=== PATIENT | male | born 1980 | race Two or more races ===

== ENCOUNTER 2019-02-28 22:55 | Inpatient (IN) | payer MEDICAID, OTHER ==
[~2019-02-28] VITALS: Ht 170.2 cm; Wt 79.5 kg
[~2019-02-28 22:55] MED LIST: CYCL-1 PO
[2019-02-28 23:26] LABS: BASOPHILS # (AUTO) 0.1 X10'3 (0-0.2); BASOPHILS % (AUTO) 0.4 % (0-1); EOSINOPHILS # (AUTO) 0.2 X10'3 (0-0.9); EOSINOPHILS % (AUTO) 1.2 % (0-6); HEMOGLOBIN 13.2 g/dl (14.0-17.9); LYMPHOCYTES # (AUTO) 1.1 X10'3 (1.1-4.8); LYMPHOCYTES % (AUTO) 6.8 % (21-51); MEAN CORPUSCULAR HEMOGLOBIN 29.4 PG (27.0-31.0); MEAN CORPUSCULAR HGB CONC 33.7 g/dL (33.0-36.5); MEAN CORPUSCULAR VOLUME 87.2 FL (78-98); MEAN PLATELET VOLUME 9.5 FL (7.4-10.4); MONOCYTES # (AUTO) 2.1 X10'3 (0-0.9); NEUTROPHILS # (AUTO) 12.8 X10'3 (1.8-7.7); NEUTROPHILS % (AUTO) 78.6 % (42-75); PLATELET COUNT 208 X10'3 (140-440); RED BLOOD COUNT 4.48 X10'6 (4.70-6.10); RED CELL DISTRIBUTION WIDTH 13.7 % (11.5-14.5); WHITE BLOOD COUNT 16.3 X10'3 (4.5-11.0)
[2019-02-28 23:41] LABS: ALANINE AMINOTRANSFERASE 93 U/L (12-78); ALBUMIN 3.2 G/DL (3.4-5.0); ALBUMIN/GLOBULIN RATIO 0.7 (1.1-1.5); ALKALINE PHOSPHATASE 152 IU/L (46-116); ANION GAP 9 (8-16); ASPARTATE AMINO TRANSFERASE 82 U/L (10-37); BILIRUBIN,TOTAL 0.7 MG/DL (0.1-1.0); BLOOD UREA NITROGEN 14 MG/DL (7-18); BUN/CREATININE RATIO 13.6 (5.4-32.0); CALCIUM 9.6 MG/DL (8.5-10.1); CHLORIDE 99 MMOL/L (99-107); CREATININE 1.03 MG/DL (0.60-1.10); GLUCOSE 114 MG/DL (70-104); POTASSIUM 3.2 MMOL/L (3.5-5.1); SODIUM 136 MMOL/L (135-145); TOTAL CARBON DIOXIDE 27.8 MMOL/L (24-32); eGFR 81 ML/MIN
[2019-02-28 23:44] LABS: PARTIAL THROMBOPLASTIN TIME 38 SECONDS (22-32)
[2019-02-28 23:52] LABS: CLARITY,URINE CLEAR (Clear); COLOR,URINE AMBER (Yellow); GLUCOSE, URINE NEGATIVE (Neg); KETONES,URINE TRACE mg/dl (Neg); LEUKOCYTE ESTERASE ,URINE NEGATIVE (Neg); NITRITES, URINE NEGATIVE (Neg); OCCULT BLOOD,URINE TRACE-INTACT (Neg); PROTEIN,URINE 100 mg/dl (Neg)
[2019-02-28 23:58] LABS: UA COLLECTION TYPE CLN CATCH MIDSTREAM
[2019-03-01] LABS: BACTERIA,URINE NONE SEEN /HPF (Neg); MUCUS STRANDS FEW /LPF (Neg); RBC,URINE 0-2 /HPF (0-2); SQUAMOUS EPITHELIAL CELL,UR NONE SEEN /LPF (FEW); TRANSITIONAL EPI CELLS,URINE FEW /HPF; WBC,URINE 0-4 /HPF (0-4)
--- NOTE | 2019-03-01 00:57 | NUR ---
DR. MENDEZ AT BEDSIDE PERFORMING US OF GRO[facility] AREA.
[2019-03-01] MEDS ORDERED: normal saline 1000ML IV soln IVB ONE (01:10)
[2019-03-01] MEDS ORDERED: CefTRIAXone 2gm/D5W 50ml 50 ML IV ONE (01:10)
[2019-03-01] MEDS: morphine 4 MG/ML inj SYRINge IV PRN ×3 (01:25→07:53)
--- NOTE | 2019-03-01 06:28 | NUR ---
ULTRASOUND IN THE ROOM
--- NOTE | 2019-03-01 06:49 | NUR ---
ULTRASOUND IS DONE WITH THE PROCEDURE
[2019-03-01] MEDS ORDERED: CLIN300C3 PO (07:43)
[2019-03-01] MEDS ORDERED: HYDR-3965 PO (07:43)
[2019-03-01] MEDS ORDERED: ondansetron/PF 4mg/2ml inj IV PRN (08:00)
[2019-03-01] MEDS ORDERED: magnesium hydroxide 30ml (MOM) UD suspension PO PRN (08:00)
[2019-03-01] MEDS ORDERED: azithromycin/NS 500mg/250ml 250 ML IV ONE ×2 (08:00)
[2019-03-01] MEDS ORDERED: mag hydrox/Alum hydrox/simeth 30ml oral suspension PO PRN (08:00)
[2019-03-01] MEDS ORDERED: acetaminophen 325mg tablet PO PRN (08:00)
[2019-03-01] MEDS: normal saline 1000ml 1,000 ML IV SCH ×3 (08:00→22:59)
[2019-03-01] MEDS ORDERED: CefTRIAXone/D5W-Rocephin 1gm 50 ML IV SCH (08:00)
--- NOTE | 2019-03-01 09:19 | NUR ---
Patient states smokes "a lot" of marijuana, occasional tobacco use, no alcholol. Patient states "sober for 9 months". 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 Addendum: 03/01/19 at 0947 by Debra Ford RN Amended: Links added.
[2019-03-01 09:50] VITALS: BP 120/68
[2019-03-01] MEDS: HYDROmorphone inj. 0.5 MG/0.5 ML DISP.SYRIN IV PRN ×4 (10:22→22:50)
[2019-03-01 11:00] VITALS: BP 129/71
[2019-03-01] MEDS ORDERED: iohexol 300mg/ml 100ml inj. ONE (11:00)
[2019-03-01] MEDS ORDERED: potassium Cl 20 mEq SR tablet PO STA (11:16)
[2019-03-01] MEDS: lactose-reduced food (Ensure Enlive) - 237ml bottle PO SCH ×2 (13:00→18:47)
--- NOTE | 2019-03-01 15:37 | NUR ---
Malnutrition consult received. Patient admitted with left testicular abscess, left epididymitis, possible sepsis, hypokalemia per MD note. Receiving potassium replacement d/t low potassium. Ate about 50% of one meal. Patient was not available at bedside for RD visit, will try tomorrow. Addendum: 03/01/19 at [address] Amended: Links added.
[2019-03-01] MEDS: piperacillin/tazo 3.375gm/50ml 50 ML IV SCH (16:37)
--- NOTE | 2019-03-01 18:45 | NUR ---
Patient in room [facility]. I have received report from Triny KAPLAN and had the opportunity to ask questions and assume patient care. Dinner sitting at bedside, states that he is in too much pain to eat. Provided Dilaudid and zofran to encourage eating. Will continue to monitor.
[2019-03-01 20:00] VITALS: BP 119/74
[2019-03-02] VITALS: BP 128/80
[2019-03-02] MEDS: piperacillin/tazo 3.375gm/50ml 50 ML IV SCH ×4 (00:49→23:45)
[2019-03-02] MEDS: HYDROmorphone inj. 0.5 MG/0.5 ML DISP.SYRIN IV PRN ×2 (04:19→09:19)
[2019-03-02 05:29] LABS: BASOPHILS # (AUTO) 0.1 X10'3 (0-0.2); BASOPHILS % (AUTO) 0.7 % (0-1); EOSINOPHILS # (AUTO) 0.2 X10'3 (0-0.9); EOSINOPHILS % (AUTO) 1.9 % (0-6); HEMATOCRIT 35.9 % (42.0-52.0); HEMOGLOBIN 12.3 g/dl (14.0-17.9); LYMPHOCYTES # (AUTO) 1.7 X10'3 (1.1-4.8); LYMPHOCYTES % (AUTO) 16.6 % (21-51); MEAN CORPUSCULAR HEMOGLOBIN 29.7 PG (27.0-31.0); MEAN CORPUSCULAR HGB CONC 34.3 g/dL (33.0-36.5); MEAN CORPUSCULAR VOLUME 86.5 FL (78-98); MEAN PLATELET VOLUME 9.6 FL (7.4-10.4); MONOCYTES # (AUTO) 1.6 X10'3 (0-0.9); MONOCYTES % (AUTO) 15.4 % (2-12); NEUTROPHILS # (AUTO) 6.6 X10'3 (1.8-7.7); NEUTROPHILS % (AUTO) 65.4 % (42-75); PLATELET COUNT 246 X10'3 (140-440); RED BLOOD COUNT 4.15 X10'6 (4.70-6.10); RED CELL DISTRIBUTION WIDTH 13.8 % (11.5-14.5); WHITE BLOOD COUNT 10.2 X10'3 (4.5-11.0)
[2019-03-02 05:50] LABS: ALBUMIN 2.7 G/DL (3.4-5.0); ANION GAP 11 (8-16); BLOOD UREA NITROGEN 9 MG/DL (7-18); BUN/CREATININE RATIO 10.3 (5.4-32.0); CALCIUM 9.2 MG/DL (8.5-10.1); CHLORIDE 103 MMOL/L (99-107); CREATININE 0.87 MG/DL (0.60-1.10); GLUCOSE 94 MG/DL (70-104); POTASSIUM 3.7 MMOL/L (3.5-5.1); SODIUM 139 MMOL/L (135-145); TOTAL CARBON DIOXIDE 25.2 MMOL/L (24-32); eGFR > 90 ML/MIN
[2019-03-02 06:30] VITALS: BP 120/79
--- NOTE | 2019-03-02 06:30 | NUR ---
Patient in room [facility]. I have received report from EUSEBIO Rocha & EUSEBIO Mccormack and had the opportunity to ask questions and assume patient care.
--- NOTE | 2019-03-02 06:53 | NUR ---
Problems reprioritized. Patient report given, questions answered & plan of care reviewed with Philly RN. Resting, requested abd, provided, will continue to monitor.
[2019-03-02] MEDS: lactose-reduced food (Ensure Enlive) - 237ml bottle PO SCH ×3 (06:58→18:40)
[2019-03-02] MEDS: HYDROcodone/acetaminophen 5mg/325mg tablet PO PRN ×4 (09:31→21:50)
[2019-03-02] MEDS: normal saline 1000ml 1,000 ML IV SCH ×2 (09:37→21:25)
[2019-03-02 11:15] VITALS: BP 136/73
--- NOTE | 2019-03-02 12:49 | NUR ---
BEHAVIORAL HEALTH CONSULTATION [employer] requested consultation as patient was requesting to restart psychiatric medications that had been discontinued. Patient reports he was in [facility] halfway in September 2018 and left with a 30 day supply of Zyprexa 20 mg QHS. He did not receive any follow-up mental health care and subsequently stopped the medication. Reports he has been sleeping poorly and has thoughts that people "are against him". He states, "Like when I feel like my son is in cahoots with my ". Denies any SI or history of self-harm or suicide attempts. Reports he lives with his and children. Occasionally "couch surfs" during times of conflict with the . Reports he is not hearing voices at this time, but is hearing "whispers" at times. No acute agitation and patient is cooperative with interview. No need for acute psychiatric inpatient treatment. Spoke with Dr. Mcfadden regarding reccomendation to re-start Zyprexa at 5 mg QHS. Patient will be provided follow-up resources for [facility] Mental Health by Behavioral Health Consultation team or [employer].
[2019-03-02] MEDS: linezolid 600mg tablet PO SCH ×2 (13:18→21:10)
[2019-03-02] MEDS: HYDROmorphone 1 mg/ml syringe IV PRN ×3 (13:19→21:23)
--- NOTE | 2019-03-02 15:49 | NUR ---
F/u: Pt reports wt loss r/t low appetite past week but does not know prior wt/wt hx. Pt started on zyvox today; RD provided written/verbal zyvox ed w/ RD contact information. Pt has no visible signs of malnutrition and does not qualify at this time. Addendum: 03/02/19 at [address] Amended: Links added.
--- NOTE | 2019-03-02 18:00 | NUR ---
Problems reprioritized. Patient report given, questions answered & plan of care reviewed with EUSEBIO Florez & EUSEBIO Lord.
--- NOTE | 2019-03-02 18:21 | NUR ---
Patient in room [facility]. I have received report from Philly KAPLAN and had the opportunity to ask questions and assume patient care with Vikki Lord RN.
--- NOTE | 2019-03-02 18:30 | NUR ---
Received report from Philly KAPLAN pt is awake and alert on RA, eating dinner, in no apparent distress, call light and items of freq use within reach.
[2019-03-02 19:00] VITALS: BP 127/73
[2019-03-02] MEDS: OLANZapine 2.5MG tablet PO SCH (21:10)
[2019-03-03] VITALS: BP 131/74
[2019-03-03] MEDS: HYDROmorphone 1 mg/ml syringe IV PRN ×4 (01:30→16:57)
[2019-03-03] MEDS: HYDROcodone/acetaminophen 5mg/325mg tablet PO PRN ×4 (02:19→19:36)
[2019-03-03 04:52] LABS: BASOPHILS # (AUTO) 0.1 X10'3 (0-0.2); BASOPHILS % (AUTO) 0.7 % (0-1); EOSINOPHILS # (AUTO) 0.4 X10'3 (0-0.9); EOSINOPHILS % (AUTO) 5.1 % (0-6); HEMATOCRIT 38.7 % (42.0-52.0); LYMPHOCYTES % (AUTO) 23.8 % (21-51); MEAN CORPUSCULAR HEMOGLOBIN 29.5 PG (27.0-31.0); MEAN CORPUSCULAR HGB CONC 33.6 g/dL (33.0-36.5); MEAN CORPUSCULAR VOLUME 87.8 FL (78-98); MONOCYTES # (AUTO) 1.1 X10'3 (0-0.9); MONOCYTES % (AUTO) 13.4 % (2-12); NEUTROPHILS # (AUTO) 4.8 X10'3 (1.8-7.7); PLATELET COUNT 314 X10'3 (140-440); RED BLOOD COUNT 4.41 X10'6 (4.70-6.10); RED CELL DISTRIBUTION WIDTH 13.7 % (11.5-14.5); WHITE BLOOD COUNT 8.4 X10'3 (4.5-11.0)
[2019-03-03 05:07] LABS: GLUCOSE 109 MG/DL (70-104)
[2019-03-03 05:08] LABS: ALBUMIN 2.9 G/DL (3.4-5.0); ANION GAP 11 (8-16); BLOOD UREA NITROGEN 14 MG/DL (7-18); BUN/CREATININE RATIO 14.7 (5.4-32.0); CALCIUM 9.3 MG/DL (8.5-10.1); CHLORIDE 103 MMOL/L (99-107); CREATININE 0.95 MG/DL (0.60-1.10); POTASSIUM 3.4 MMOL/L (3.5-5.1); SODIUM 138 MMOL/L (135-145); TOTAL CARBON DIOXIDE 24.1 MMOL/L (24-32); eGFR 89 ML/MIN
--- NOTE | 2019-03-03 06:20 | NUR ---
Gave report to Ian KAPLAN pt is resting on RA, call lights and items of freq use within reach.
--- NOTE | 2019-03-03 06:20 | NUR ---
Problems reprioritized. Patient report given to Ian KAPLAN, questions answered & plan of care reviewed with Vikki KAPLAN and Risa KAPLAN .
--- NOTE | 2019-03-03 06:21 | NUR ---
Patient in room [facility]. I have received report from EUSEBIO SANCHEZ AND EUSEBIO RILEY and had the opportunity to ask questions and assume patient care.
--- NOTE | 2019-03-03 06:22 | NUR ---
Reviewed and agree with all charting from Prshakirnce RN
[2019-03-03] MEDS: linezolid 600mg tablet PO SCH ×2 (07:03→19:35)
[2019-03-03 07:20] VITALS: BP 138/74
[2019-03-03] MEDS: lactose-reduced food (Ensure Enlive) - 237ml bottle PO SCH ×3 (07:54→17:49)
[2019-03-03] MEDS ORDERED: magnesium 4gm in 100ml NS 100 ML IV PRN (07:55)
[2019-03-03] MEDS ORDERED: magnesium Cl slow-release 64mg tablet PO PRN (07:55)
[2019-03-03] MEDS ORDERED: potassium Cl 20 mEq SR tablet PO PRN (07:55)
[2019-03-03] MEDS ORDERED: potassium Cl 40MEQ/NS 500ml 500 ML IV PRN ×2 (07:55)
[2019-03-03] MEDS: normal saline 1000ml 1,000 ML IV SCH ×3 (08:49→23:32)
[2019-03-03] MEDS: potassium Cl 20 mEq SR tablet PO PRN ×3 (08:49→16:58)
[2019-03-03] MEDS: piperacillin/tazo 3.375gm/50ml 50 ML IV SCH ×3 (09:27→23:29)
[2019-03-03 11:00] VITALS: BP 111/71
--- NOTE | 2019-03-03 18:10 | NUR ---
Patient in room [facility]. I have received report from Ian KAPLAN and had the opportunity to ask questions and assume patient care with Vikki KAPLAN.
--- NOTE | 2019-03-03 18:17 | NUR ---
Problems reprioritized. Patient report given, questions answered & plan of care reviewed with EUSEBIO SANCHEZ AND EUSEBIO RILEY.
--- NOTE | 2019-03-03 18:42 | NUR ---
Received report from Ian KAPLAN with Risa RN pt is awake and alert eating dinner in no apparent distress, call light and items of freq use within reach.
[2019-03-03 19:00] VITALS: BP 125/81
[2019-03-03] MEDS: lactobacillus rhamnosus 10,000 MMU CELLS/CAPSULE PO SCH (19:35)
[2019-03-03] MEDS: OLANZapine 2.5MG tablet PO SCH (21:08)
[2019-03-04] VITALS: BP 139/80
[2019-03-04] MEDS: HYDROmorphone 1 mg/ml syringe IV PRN ×5 (02:46→23:29)
[2019-03-04] MEDS: HYDROcodone/acetaminophen 5mg/325mg tablet PO PRN ×3 (04:42→15:45)
[2019-03-04 05:42] LABS: ALBUMIN 3.3 G/DL (3.4-5.0); ANION GAP 13 (8-16); BASOPHILS # (AUTO) 0.1 X10'3 (0-0.2); BASOPHILS % (AUTO) 0.9 % (0-1); BLOOD UREA NITROGEN 13 MG/DL (7-18); BUN/CREATININE RATIO 12.1 (5.4-32.0); CALCIUM 10.1 MG/DL (8.5-10.1); CHLORIDE 103 MMOL/L (99-107); CREATININE 1.07 MG/DL (0.60-1.10); EOSINOPHILS # (AUTO) 0.5 X10'3 (0-0.9); EOSINOPHILS % (AUTO) 5.7 % (0-6); GLUCOSE 111 MG/DL (70-104); HEMATOCRIT 42.4 % (42.0-52.0); HEMOGLOBIN 14.2 g/dl (14.0-17.9); LYMPHOCYTES % (AUTO) 22.2 % (21-51); MEAN CORPUSCULAR HEMOGLOBIN 29.7 PG (27.0-31.0); MEAN CORPUSCULAR HGB CONC 33.5 g/dL (33.0-36.5); MEAN CORPUSCULAR VOLUME 88.4 FL (78-98); MEAN PLATELET VOLUME 8.9 FL (7.4-10.4); MONOCYTES % (AUTO) 11.4 % (2-12); NEUTROPHILS # (AUTO) 5.5 X10'3 (1.8-7.7); NEUTROPHILS % (AUTO) 59.8 % (42-75); PLATELET COUNT 396 X10'3 (140-440); POTASSIUM 4.3 MMOL/L (3.5-5.1); RED CELL DISTRIBUTION WIDTH 13.8 % (11.5-14.5); SODIUM 139 MMOL/L (135-145); TOTAL CARBON DIOXIDE 23.1 MMOL/L (24-32); WHITE BLOOD COUNT 9.2 X10'3 (4.5-11.0); eGFR 78 ML/MIN
--- NOTE | 2019-03-04 06:02 | NUR ---
Reviewed and agreed with Prudence RN charting
--- NOTE | 2019-03-04 06:05 | NUR ---
Problems reprioritized. Patient report given to Geovani KAPLAN, questions answered & plan of care reviewed with Risa RN .
[2019-03-04 07:45] VITALS: BP 113/69
[2019-03-04] MEDS: linezolid 600mg tablet PO SCH ×2 (07:45→20:01)
[2019-03-04] MEDS: lactobacillus rhamnosus 10,000 MMU CELLS/CAPSULE PO SCH ×2 (07:45→20:01)
[2019-03-04] MEDS: piperacillin/tazo 3.375gm/50ml 50 ML IV SCH ×3 (07:50→23:28)
[2019-03-04] MEDS: lactose-reduced food (Ensure Enlive) - 237ml bottle PO SCH ×3 (08:00→18:00)
--- NOTE | 2019-03-04 09:20 | NUR ---
Patient in room [facility]. I have received report from Vikki KAPLAN and had the opportunity to ask questions and assume patient care.
--- NOTE | 2019-03-04 09:47 | NUR ---
Gave report to Carlos KAPLAN pt is resting on RA, in no apparent distress, call light and items of freq use within reach.
[2019-03-04 11:00] VITALS: BP 143/82
[2019-03-04] MEDS: normal saline 1000ml 1,000 ML IV SCH ×2 (15:26→21:57)
--- NOTE | 2019-03-04 18:10 | NUR ---
Problems reprioritized. Patient report given, questions answered & plan of care reviewed with Prudence RN.
[2019-03-04 19:00] VITALS: BP 126/69
[2019-03-04] MEDS: OLANZapine 2.5MG tablet PO SCH (21:57)
[2019-03-05] VITALS: BP 133/74
[2019-03-05 05:22] LABS: ALBUMIN 2.9 G/DL (3.4-5.0); ANION GAP 7 (8-16); BLOOD UREA NITROGEN 11 MG/DL (7-18); BUN/CREATININE RATIO 11.2 (5.4-32.0); CALCIUM 9.5 MG/DL (8.5-10.1); CHLORIDE 105 MMOL/L (99-107); CREATININE 0.98 MG/DL (0.60-1.10); GLUCOSE 104 MG/DL (70-104); POTASSIUM 4.4 MMOL/L (3.5-5.1); SODIUM 141 MMOL/L (135-145); TOTAL CARBON DIOXIDE 29.4 MMOL/L (24-32); eGFR 86 ML/MIN
[2019-03-05 05:32] LABS: BASOPHILS # (AUTO) 0.1 X10'3 (0-0.2); BASOPHILS % (AUTO) 0.8 % (0-1); EOSINOPHILS # (AUTO) 0.4 X10'3 (0-0.9); EOSINOPHILS % (AUTO) 6.9 % (0-6); HEMATOCRIT 37.9 % (42.0-52.0); HEMOGLOBIN 12.7 g/dl (14.0-17.9); LYMPHOCYTES # (AUTO) 1.5 X10'3 (1.1-4.8); LYMPHOCYTES % (AUTO) 23.4 % (21-51); MEAN CORPUSCULAR HEMOGLOBIN 29.2 PG (27.0-31.0); MEAN CORPUSCULAR HGB CONC 33.4 g/dL (33.0-36.5); MEAN CORPUSCULAR VOLUME 87.3 FL (78-98); MEAN PLATELET VOLUME 8.4 FL (7.4-10.4); MONOCYTES # (AUTO) 0.8 X10'3 (0-0.9); MONOCYTES % (AUTO) 12.8 % (2-12); NEUTROPHILS # (AUTO) 3.7 X10'3 (1.8-7.7); NEUTROPHILS % (AUTO) 56.1 % (42-75); PLATELET COUNT 352 X10'3 (140-440); RED BLOOD COUNT 4.34 X10'6 (4.70-6.10); RED CELL DISTRIBUTION WIDTH 13.8 % (11.5-14.5); WHITE BLOOD COUNT 6.5 X10'3 (4.5-11.0)
--- NOTE | 2019-03-05 05:50 | NUR ---
Reviewed and agreed with Prudence RN charting
--- NOTE | 2019-03-05 06:20 | NUR ---
Problems reprioritized. Patient report given TO RANDOLPH KAPLAN, questions answered & plan of care reviewed with Risa KAPLAN and Vikki KAPLAN.
[2019-03-05 07:00] VITALS: BP 123/76
[2019-03-05] MEDS: lactose-reduced food (Ensure Enlive) - 237ml bottle PO SCH ×3 (08:00→18:19)
[2019-03-05] MEDS: piperacillin/tazo 3.375gm/50ml 50 ML IV SCH (09:34)
[2019-03-05] MEDS: lactobacillus rhamnosus 10,000 MMU CELLS/CAPSULE PO SCH ×2 (09:34→19:35)
[2019-03-05] MEDS: linezolid 600mg tablet PO SCH ×2 (09:35→19:35)
[2019-03-05] MEDS: HYDROcodone/acetaminophen 5mg/325mg tablet PO PRN (09:35)
[2019-03-05 11:00] VITALS: BP 125/86
[2019-03-05] MEDS: normal saline 1000ml 1,000 ML IV SCH ×2 (12:00→19:35)
[2019-03-05] MEDS: HYDROmorphone 1 mg/ml syringe IV PRN ×3 (12:50→22:34)
[2019-03-05] MEDS: levoFLOXACIN-Levaquin 500mg/D5 100 ML IV SCH (14:50)
[2019-03-05] MEDS: ibuprofen tablet 400 MG TABLET PO SCH ×2 (14:50→18:19)
--- NOTE | 2019-03-05 18:58 | NUR ---
Patient in room [facility]. I have received report from Aparna KAPLAN and had the opportunity to ask questions and assume patient care.
[2019-03-05] MEDS: oxyCODONE/APAP 10/325mg tablet PO PRN (19:34)
[2019-03-05] MEDS: OLANZapine 2.5MG tablet PO SCH (19:41)
[2019-03-05 20:00] VITALS: BP 139/79
[2019-03-05] MEDS ORDERED: docusate sod 250mg capsule PO SCH (21:00)
[2019-03-06] VITALS: BP 124/74
[2019-03-06] MEDS: oxyCODONE/APAP 10/325mg tablet PO PRN ×2 (00:01→07:47)
[2019-03-06] MEDS: HYDROmorphone 1 mg/ml syringe IV PRN (03:45)
[2019-03-06] MEDS: normal saline 1000ml 1,000 ML IV SCH (05:34)
[2019-03-06 05:53] LABS: BASOPHILS # (AUTO) 0.1 X10'3 (0-0.2); BASOPHILS % (AUTO) 0.9 % (0-1); EOSINOPHILS # (AUTO) 0.3 X10'3 (0-0.9); EOSINOPHILS % (AUTO) 4.7 % (0-6); HEMATOCRIT 38.3 % (42.0-52.0); HEMOGLOBIN 12.9 g/dl (14.0-17.9); LYMPHOCYTES # (AUTO) 1.6 X10'3 (1.1-4.8); LYMPHOCYTES % (AUTO) 23.3 % (21-51); MEAN CORPUSCULAR HEMOGLOBIN 29.4 PG (27.0-31.0); MEAN CORPUSCULAR HGB CONC 33.7 g/dL (33.0-36.5); MEAN CORPUSCULAR VOLUME 87.3 FL (78-98); MEAN PLATELET VOLUME 8.3 FL (7.4-10.4); MONOCYTES # (AUTO) 0.7 X10'3 (0-0.9); MONOCYTES % (AUTO) 10.2 % (2-12); NEUTROPHILS # (AUTO) 4.2 X10'3 (1.8-7.7); NEUTROPHILS % (AUTO) 60.9 % (42-75); PLATELET COUNT 322 X10'3 (140-440); RED BLOOD COUNT 4.39 X10'6 (4.70-6.10); RED CELL DISTRIBUTION WIDTH 13.9 % (11.5-14.5); WHITE BLOOD COUNT 6.9 X10'3 (4.5-11.0)
--- NOTE | 2019-03-06 06:28 | NUR ---
Problems reprioritized. Patient report given, questions answered & plan of care reviewed with Aparna KAPLAN.
[2019-03-06 06:57] LABS: LARGE PLATELETS FEW; PLATELET ESTIMATE NORMAL; TOTAL CELLS COUNTED 100; TOXIC VACUOLATION 1+
[2019-03-06 07:00] VITALS: BP 131/70
[2019-03-06] MEDS: lactose-reduced food (Ensure Enlive) - 237ml bottle PO SCH (07:42)
[2019-03-06] MEDS: lactobacillus rhamnosus 10,000 MMU CELLS/CAPSULE PO SCH (07:47)
[2019-03-06] MEDS: ibuprofen tablet 400 MG TABLET PO SCH ×2 (07:47→13:28)
[2019-03-06] MEDS: levoFLOXACIN-Levaquin 500mg/D5 100 ML IV SCH (07:47)
[2019-03-06] MEDS: linezolid 600mg tablet PO SCH (07:49)
[2019-03-06] MEDS ORDERED: DOCU250C96 PO (12:00)
[2019-03-06] MEDS ORDERED: PER10325T PO (12:00)
[2019-03-06] MEDS ORDERED: FAMO-128 PO (12:00)
[2019-03-06] MEDS ORDERED: LINE600T32 PO (12:00)
[2019-03-06] MEDS ORDERED: IBUP-1986 PO (12:00)
--- NOTE | 2019-03-06 12:05 | NUR ---
Initial: Pt admit w/ L scrotal abscess and epididymitis s/p I&D. Pt PO 100% regular diet w/ ONS meeting healing needs. [facility] 03/05. Will continue to monitor. Rec: 1. continue regular diet 2. MVI for wound 3. ensure enlive TIDWM 4. wt per rx Addendum: 03/06/19 at [address] Amended: Links added.
--- NOTE | 2019-03-06 13:30 | NUR ---
Patients discharge instructions reviewed with patient and patient verbalized understanding. Patients IV Dc'd cannula intact. Patient is picking up medications and [facility]. Patient was given dressing supplies for home. Patient states he has all his belongings. Patient taken via wheelchair to vehicle by Auxillary
== END 2019-03-06 13:39 | disposition home or self-care (01) | DRG 728 ==
LOC: ER 22:56 → SUR 3N 03-01 08:39 → CMPBEDREQ 03-01 20:00
PROVIDERS: ADMIT Family Medicine; ATTEND Internal Medicine
PROC: BW211ZZ Computerized Tomography (CT Scan) of Abdomen and Pelvis using Low Osmolar Contrast (ICD-10-PCS; principal; 2019-03-01)
DX: N45.1 Epididymitis (principal); E11.9 Type 2 diabetes mellitus without complications; F12.90 Cannabis use, unspecified, uncomplicated; F17.210 Nicotine dependence, cigarettes, uncomplicated; E87.6 Hypokalemia; B95.62 Methicillin resistant Staphylococcus aureus infection as the cause of diseases classified elsewhere; F20.9 Schizophrenia, unspecified; Z79.899 Other long term (current) drug therapy
CPT/HCPCS: 36415; 74177; 76870; 80048; 80053; 81001; 83605; 84145; 85025; 85730; 87040; 87070; 87077; 87186; 87491; 96365; 96375; 99285; G0378; J0456; J0696; J1170; J1956; J2270; J2405; J2543; J7030; Q9967